=== PATIENT | female | born 1960 | race Caucasian/White ===

== ENCOUNTER → 2020-12-16 | Outpatient (CLI) | payer MEDICARE | LOC: KOH-I 15:04 | DX: M79.671 Pain in right foot (principal) | CPT/HCPCS: 73630 ==

== ENCOUNTER → 2020-12-30 | Outpatient (CLI) | payer MEDICARE | LOC: EXRD 12-23 08:30 | DX: Z00.00 Encounter for general adult medical examination without abnormal findings (principal); M81.0 Age-related osteoporosis without current pathological fracture | CPT/HCPCS: 77080 ==

== ENCOUNTER → 2021-01-17 | Outpatient (CLI) | payer MEDICARE, OTHER | LOC: KOH-I 09:59 | DX: M79.671 Pain in right foot (principal); G89.29 Other chronic pain; M25.474 Effusion, right foot | CPT/HCPCS: 73718 ==

== ENCOUNTER → 2021-03-03 | Outpatient (CLI) | payer MEDICARE, OTHER | LOC: KOH-I 13:34 | DX: M79.671 Pain in right foot (principal) | CPT/HCPCS: 73630 ==